=== PATIENT | male | born 1940 | race African-American/Black ===

== ENCOUNTER 2019-11-18 12:09 | Emergency (ER) | payer OTHER ==
[~2019-11-18] VITALS: Ht 182.9 cm; Wt 64.0 kg
[2019-11-18] MEDS ORDERED: SODIUM CHLORIDE 0.9% 1,000 ML IV ONE (12:33)
[2019-11-18 13:43] LABS: BASOPHILS % 0.6 % (0.0-2.0); EOSINOPHILS % 2.4 % (0.0-5.0); HEMATOCRIT. 38.9 % (42.0-52.0); HEMOGLOBIN. 12.8 g/dL (14.0-18.0); LYMPHOCYTES % 29.5 % (20.0-50.0); MEAN CORPUSCULAR HEMOGLOBIN 28.1 pg (28.0-32.0); MEAN CORPUSCULAR VOLUME 85.5 fL (80.0-94.0); MEAN PLATELET VOLUME 7.8 fl (7.4-10.4); MONOCYTES % 13.1 % (2.0-8.0); NEUTROPHILS % 54.4 % (40.0-76.0); PLATELET 320 x1000/uL (130-400); RED BLOOD CELL COUNT 4.55 mill/uL (4.7-6.1); RED CELL DISTRIBUTION WIDTH 14.4 % (11.6-14.6)
[2019-11-18 13:49] LABS: CHLORIDE 108 mEq/L (98-107)
[2019-11-18] MEDS ORDERED: ASPIRIN 325MG EC TABLET PO ONE (14:15)
[2019-11-18 16:27] VITALS: BP 137/70
== END 2019-11-18 17:11 | disposition short-term general hospital (02) ==
LOC: ER 12:09
DX: R41.82 Altered mental status, unspecified (principal); R55 Syncope and collapse; G45.9 Transient cerebral ischemic attack, unspecified; Z86.73 Personal history of transient ischemic attack (TIA), and cerebral infarction without residual deficits
CPT/HCPCS: 36415; 70450; 71045; 80053; 82962; 83880; 84484; 85025; 93005; 96360; 99285; J7030

== ENCOUNTER 2020-01-16 12:38 | Emergency (ER) | payer OTHER ==
[~2020-01-16] VITALS: Ht 177.8 cm; Wt 68.0 kg
[2020-01-16] MEDS ORDERED: SODIUM CHLORIDE 0.9% 1,000 ML IV ONE (13:15)
[2020-01-16 13:43] LABS: BASOPHILS % 1.9 % (0.0-2.0); EOSINOPHILS % 4.2 % (0.0-5.0); HEMATOCRIT. 42.6 % (42.0-52.0); HEMOGLOBIN. 14.1 g/dL (14.0-18.0); LYMPHOCYTES % 33.8 % (20.0-50.0); MEAN CORPUSCULAR HEMOGLOBIN 28.1 pg (28.0-32.0); MEAN CORPUSCULAR VOLUME 85.1 fL (80.0-94.0); MONOCYTES % 13.1 % (2.0-8.0); RED BLOOD CELL COUNT 5.01 mill/uL (4.7-6.1); RED CELL DISTRIBUTION WIDTH 13.7 % (11.6-14.6)
[2020-01-16 13:48] LABS: CHLORIDE 107 mEq/L (98-107)
[2020-01-16 14:20] LABS: PLATELET 274 x1000/uL (130-400)
[2020-01-16 15:56] LABS: INR 1.2; PROTHROMBIN TIME 12.8 sec (9.6-11.0)
[2020-01-16 16:29] LABS: CLARITY URINE CLEAR (CLEAR); COLOR URINE YELLOW (YELLOW); KETONES URINE NEGATIVE (NEGATIVE); LEUKOCYTE ESTERASE URINE NEGATIVE (NEGATIVE); NITRITE URINE NEGATIVE (NEGATIVE); OCCULT BLOOD URINE NEGATIVE (NEGATIVE); PH URINE 6.5 (4.5-8.0); PROTEIN URINE NEGATIVE (NEGATIVE); SPECIFIC GRAVITY URINE 1.014 (1.005-1.030); UROBILINOGEN URINE 0.2 E.U./dL (0.2-1.0)
[2020-01-16 17:42] VITALS: BP 119/80
== END 2020-01-16 17:58 | disposition short-term general hospital (02) ==
LOC: ER 12:38
DX: R55 Syncope and collapse (principal); G90.8 Other disorders of autonomic nervous system; I49.9 Cardiac arrhythmia, unspecified; Z86.73 Personal history of transient ischemic attack (TIA), and cerebral infarction without residual deficits
CPT/HCPCS: 36415; 70450; 71045; 80053; 81003; 84484; 85025; 85610; 93005; 96360; 96361; 99285; J7030

== ENCOUNTER 2020-11-22 16:09 | Emergency (ER) | payer OTHER ==
[~2020-11-22] VITALS: Ht 182.9 cm; Wt 77.0 kg
[2020-11-22] MEDS ORDERED: SODIUM CHLORIDE 0.9% 1,000 ML IV ONE (17:45)
[2020-11-22 18:06] LABS: BASOPHILS % 0.6 % (0.0-2.0); EOSINOPHILS % 1.6 % (0.0-5.0); HEMATOCRIT. 39.5 % (42.0-52.0); HEMOGLOBIN. 12.6 g/dL (14.0-18.0); MEAN CORPUSCULAR HEMOGLOBIN 26.5 pg (28.0-32.0); MEAN CORPUSCULAR VOLUME 83.1 fL (80.0-94.0); MEAN PLATELET VOLUME 7.3 fl (7.4-10.4); NEUTROPHILS % 73.8 % (40.0-76.0); PLATELET 307 x1000/uL (130-400); RED BLOOD CELL COUNT 4.76 mill/uL (4.7-6.1); RED CELL DISTRIBUTION WIDTH 14.7 % (11.6-14.6)
[2020-11-22 18:11] LABS: CHLORIDE 109 mEq/L (98-107)
[2020-11-22 21:45] VITALS: BP 127/76
[2020-11-22 22:23] LABS: CLARITY URINE CLEAR (CLEAR); COLOR URINE YELLOW (YELLOW); KETONES URINE NEGATIVE (NEGATIVE); LEUKOCYTE ESTERASE URINE NEGATIVE (NEGATIVE); NITRITE URINE NEGATIVE (NEGATIVE); OCCULT BLOOD URINE NEGATIVE (NEGATIVE); PROTEIN URINE NEGATIVE (NEGATIVE); SPECIFIC GRAVITY URINE 1.003 (1.005-1.030); UROBILINOGEN URINE 0.2 E.U./dL (0.2-1.0)
== END 2020-11-22 22:35 | disposition short-term general hospital (02) ==
LOC: ER 16:09
DX: R55 Syncope and collapse (principal); E11.9 Type 2 diabetes mellitus without complications; I10 Essential (primary) hypertension; Z86.73 Personal history of transient ischemic attack (TIA), and cerebral infarction without residual deficits
CPT/HCPCS: 36415; 71045; 80048; 81003; 82962; 84484; 85025; 87426; 93005; 99285; J7030